=== PATIENT | male | born 1990 | race Asian ===

== ENCOUNTER 2019-10-22 12:38 | Outpatient (CLI) | payer OTHER ==
[2019-10-22] MEDS ORDERED: FLUT9.9S NS (13:29)
[2019-10-22] MEDS ORDERED: CETI10TA24 PO (13:29)
== END 2019-10-22 23:59 | disposition home or self-care (01) ==
LOC: STAR 12:38
PROVIDERS: ATTEND Otolaryngology
DX: Z02.9 Encounter for administrative examinations, unspecified (principal)

== ENCOUNTER 2019-10-30 05:39 | Observation (INO) | payer OTHER ==
[~2019-10-30] VITALS: Ht 172.7 cm; Wt 87.8 kg
[~2019-10-30 05:39] MED LIST: CETI10TA24 PO; FLUT9.9S NS
[2019-10-30 06:14] VITALS: BP 110/73
[2019-10-30] MEDS ORDERED: LACTATED RINGERS 1,000 ML IV SCH (06:15)
[2019-10-30] MEDS ORDERED: BACITRACIN OINT 500U/GM, 15 GM ONE (07:00)
[2019-10-30] MEDS ORDERED: LIDOCAINE 1%-EPI 1:100K, 20ML ONE (07:00)
[2019-10-30] MEDS ORDERED: OXYMETAZOLINE NASAL SPRAY 0.05%, 15ML ONE (07:00)
[2019-10-30] MEDS ORDERED: EPINEPHRINE TOPICAL SOLN 1 MG/ML, 30ML ONE (07:00)
[2019-10-30] MEDS ORDERED: FLUORESCEIN SODIUM 500 MG/5 ML ONE (07:00)
[2019-10-30] MEDS ORDERED: FENTANYL PF 250 MCG/5ML ONE (07:26)
[2019-10-30] MEDS ORDERED: MIDAZOLAM 1 MG/ML, 2ML ONE (07:26)
[2019-10-30] MEDS ORDERED: NEOSTIGMINE 1 MG/ML, 10ML ONE (07:29)
[2019-10-30] MEDS ORDERED: GLYCOPYRROLATE 0.2MG/1ML, 5ML ONE (07:29)
[2019-10-30] MEDS ORDERED: SUCCINYLCHOLINE 20 MG/ML, 10ML ONE (07:29)
[2019-10-30] MEDS ORDERED: ROCURONIUM 10MG/ML,5ML ONE (07:29)
[2019-10-30] MEDS ORDERED: PROPOFOL 10 MG/ML, 20ML ONE (07:29)
[2019-10-30] MEDS ORDERED: DEXAMETHASONE 4 MG/ML, 1ML ONE ×2 (07:29→09:34)
[2019-10-30] MEDS ORDERED: ONDANSETRON 2MG/ML, 2ML ONE (07:29)
[2019-10-30] MEDS ORDERED: CEFAZOLIN 1,000 MG ONE (07:29)
[2019-10-30] MEDS ORDERED: NALOXONE 0.4 MG/ML, 1ML ONE (07:37)
[2019-10-30] MEDS ORDERED: LORazepam 2 MG/ML, 1ML IVPush PRN (08:00)
[2019-10-30] MEDS ORDERED: ONDANSETRON ODT 8 MG PO PRN (08:00)
[2019-10-30] MEDS ORDERED: PROMETHAZINE 25 MG/ML, 1ML IV PRN (08:00)
[2019-10-30] MEDS ORDERED: HYDROmorphone 2 MG/ML, 1ML IVPush PRN (08:00)
[2019-10-30] MEDS ORDERED: ONDANSETRON 2MG/ML, 2ML IV PRN (08:00)
[2019-10-30] MEDS ORDERED: ACETAMINOPHEN 325 MG TABLET PO PRN ×2 (08:00→13:00)
[2019-10-30] MEDS ORDERED: OXYcodone 5 MG/5 ML ORAL.SOL UDC PO PRN ×2 (08:00→13:00)
[2019-10-30] MEDS ORDERED: PROMETHAZINE 25 MG SUPP PR PRN (08:00)
[2019-10-30] MEDS ORDERED: SUGAMMADEX 200 MG/2 ML IVPush ONE (09:34)
[2019-10-30] MEDS ORDERED: FENTANYL PF 100 MCG/2ML ONE ×2 (10:17→10:52)
[2019-10-30] MEDS ORDERED: OXYcodone 5 MG/5 ML ORAL.SOL UDC ONE (10:18)
[2019-10-30] MEDS: FENTANYL PF 100 MCG/2ML IV PRN ×4 (10:20→10:56)
[2019-10-30 11:50] VITALS: BP 127/90
[2019-10-30] MEDS ORDERED: ONDANSETRON 2MG/ML, 2ML IVPush PRN (13:00)
[2019-10-30] MEDS ORDERED: MORPHINE SULFATE 4 MG/ML, 1ML IVPush PRN (13:00)
[2019-10-30] MEDS: LACTATED RINGERS 1,000 ML IV SCH ×2 (14:05→22:57)
[2019-10-30 14:45] VITALS: BP 114/73
[2019-10-30] MEDS: OXYcodone 5 MG/5 ML ORAL.SOL UDC PO PRN (18:24)
[2019-10-30 19:51] VITALS: BP 99/62
[2019-10-30 23:52] VITALS: BP 96/57
[2019-10-31 04:30] VITALS: BP 94/60
[2019-10-31 06:25] VITALS: BP 94/58
[2019-10-31] MEDS ORDERED: CETIRIZINE 10 MG TABLET PO SCH (09:00)
[2019-10-31] MEDS: LACTATED RINGERS 1,000 ML IV SCH (09:06)
[2019-10-31] MEDS ORDERED: AMOX1TAB64 PO (12:16)
[2019-10-31] MEDS ORDERED: OXYC5CAP2 PO (12:18)
[2019-10-31] MEDS: OXYcodone 5 MG/5 ML ORAL.SOL UDC PO PRN (12:47)
== END 2019-10-31 13:23 | disposition home or self-care (01) ==
LOC: OUT 05:39 → 4NE 11:35 → OUT 23:16 → DCLOUNGE 10-31 13:19
PROVIDERS: ADMIT Otolaryngology; ATTEND Otolaryngology
DX: J32.0 Chronic maxillary sinusitis (principal); J32.2 Chronic ethmoidal sinusitis; J35.01 Chronic tonsillitis; G47.33 Obstructive sleep apnea (adult) (pediatric); J34.2 Deviated nasal septum
CPT/HCPCS: 30802; 31030; 31201; 31240; 42826; 88304; 88311; 96374; G0378; J0690; J1100; J1170; J2250; J2310; J2405; J2704; J3010; J3490; J7120; J2710; J0330